=== PATIENT | male | born 1960 | race Caucasian/White ===

== ENCOUNTER 2025-04-14 14:16 | Inpatient (IN) | payer MEDICARE, OTHER ==
[~2025-04-14] VITALS: Ht 177.8 cm; Wt 86.6 kg
[2025-04-14 14:50] VITALS: O2SAT 96
[2025-04-14 14:51] LABS: BASOPHILS # (AUTO) 0.1 K/uL (0.0-0.2); BASOPHILS % (AUTO) 1.1 % (0.0-2.0); EOSINOPHILS # (AUTO) 0.2 K/uL (0.0-0.7); EOSINOPHILS % (AUTO) 3.9 % (0.0-6.0); HEMATOCRIT 44 % (39-51); HEMOGLOBIN 14.9 g/dL (13.5-17.5); LYMPHOCYTES # (AUTO) 1.9 K/uL (0.8-4.8); LYMPHOCYTES % (AUTO) 30.6 % (20.0-44.0); MEAN CORPUSCULAR HEMOGLOBIN 32 PG (26.0-33.0); MEAN CORPUSCULAR HGB CONC 34 g/dl (31.0-36.0); MEAN CORPUSCULAR VOLUME 93 fL (80-96); MONOCYTES # (AUTO) 0.4 K/uL (0.1-1.30); MONOCYTES % (AUTO) 7.4 % (2.0-12.0); NEUTROPHILS # (AUTO) 3.5 K/uL (1.8-8.9); PLATELET COUNT (AUTO) 236 K/uL (150-450); RED BLOOD CELL COUNT(AUTO) 4.69 MIL/uL (4.5-6.0); RED CELL DISTRIBUTION WIDTH 13.7 % (11.5-15.0); WHITE BLOOD COUNT (AUTO) 6.1 K/uL (4.3-11.0)
[2025-04-14 14:58] LABS: CARBON DIOXIDE 30 mmol/L (21-32); CHLORIDE 104 mmol/L (98-107); CREATININE 0.8 mg/dL (0.6-1.3); GLUCOSE 63 mg/dL (74-106); POTASSIUM 4.1 mmol/L (3.5-5.1); SODIUM SERUM 140 mmol/L (136-145); UREA NITROGEN, BLOOD 14 mg/dL (7-18)
[2025-04-14 15:04] LABS: APPEARANCE,URINE CLEAR (CLEAR); BILIRUBIN,URINE Negative (NEGATIVE); BLOOD, URINE Negative Ery/uL (NEGATIVE); COLOR,URINE YELLOW (YELLOW); KETONES,URINE Negative (NEGATIVE); LEUKOCYTE ESTERASE ,URINE Negative (NEGATIVE); PH,URINE 5.5 (5.0-8.0); PROTEIN,URINE Negative (NEGATIVE); UGLUCOSE Negative (NEGATIVE); UROBILINOGEN,URINE 0.2 EU/dL (0.2)
[2025-04-14 15:04] LABS: ACETAMINOPHEN <10 ug/ml (10-30); ALANINE AMINOTRANSFERASE 16 U/L (12-78); ALBUMIN 3.6 g/dL (3.4-5.0); ALCOHOL, BLOOD < 3 mg/dL (0-10); ALKALINE PHOSPHATASE 65 U/L (46-116); ASPARTATE AMINOTRANSFERASE 12 U/L (15-37); BILIRUBIN,DIRECT 0.1 mg/dL (0.0-0.2); BILIRUBIN,TOTAL 0.3 mg/dL (0.2-1.0); SALICYLATE 1.2 mg/dL (2.8-20.0); TOTAL PROTEIN, SERUM 7.5 g/dL (6.4-8.2)
[2025-04-14 15:05] LABS: NITRITE, URINE NEGATIVE (NEGATIVE)
[2025-04-14 15:12] LABS: AMPHETAMINE, URINE NEGATIVE (NEGATIVE); BARBITURATE, URINE NEGATIVE (NEGATIVE); BENZODIAZEPINE, URINE NEGATIVE (NEGATIVE); CANNABINOID, URINE NEGATIVE (NEGATIVE); COCCAINE, URINE NEGATIVE (NEGATIVE); OPIATE, URINE NEGATIVE (NEGATIVE); PHENCYCLIDINE SCREEN,URINE NEGATIVE (NEGATIVE)
[2025-04-14] MEDS ORDERED: PALI156D IM (15:18)
[2025-04-14] MEDS ORDERED: LEVE500T9 PO (15:18)
[2025-04-14] MEDS ORDERED: SERT50TA PO (15:18)
[2025-04-14] MEDS ORDERED: VALP250S4 PO (15:18)
[2025-04-14] MEDS ORDERED: OLAN10TA6 PO (15:18)
[2025-04-14] MEDS ORDERED: CARV6.25 PO (15:18)
[2025-04-14] MEDS ORDERED: MAGNESIUM HYDROXIDE 30 ML UDC PO PRN (19:30)
[2025-04-14] MEDS ORDERED: LORAZEPAM 1 MG TABLET PO PRN (19:30)
[2025-04-14] MEDS ORDERED: TEMAZEPAM 7.5 MG CAPSULE PO PRN ×2 (19:30)
[2025-04-14] MEDS ORDERED: MAG HYDROX/AL HYDROX/SIMETH 30 ML UDC PO PRN (19:30)
[2025-04-14 19:54] VITALS: BP 117/78; TEMP 97.5; O2SAT 98
[2025-04-14] MEDS: BLOOD SUGAR DIAGNOSTIC 1 EACH STRIP IN ONE (20:01)
[2025-04-15 07:53] LABS: ALBUMIN 3.6 g/dL (3.4-5.0); BILIRUBIN,TOTAL 0.4 mg/dL (0.2-1.0); CALCIUM, SERUM 9.2 mg/dL (8.5-10.1); CREATININE 0.8 mg/dL (0.6-1.3); POTASSIUM 4.3 mmol/L (3.5-5.1); TOTAL PROTEIN, SERUM 7.3 g/dL (6.4-8.2)
[2025-04-15 07:55] LABS: CHOLESTEROL 228 mg/dL (<200); HDL CHOLESTEROL 54 mg/dL (40-60); LDL 144 mg/dL (0-99); TRIGLYCERIDES 106 mg/dL (30-150)
[2025-04-15 08:00] VITALS: BP 118/82; TEMP 98.9; O2SAT 100
[2025-04-15] MEDS: CARVEDILOL 6.25 MG TABLET PO SCH (08:23)
[2025-04-15] MEDS: LEVETIRACETAM (250 MG) 250 MG TABLET PO SCH (08:23)
[2025-04-15] MEDS: VALPROIC ACID 250 MG/5 ML UDC PO SCH (08:23)
[2025-04-15 14:07] LABS: CREATININE 0.9 mg/dL (0.6-1.3)
[2025-04-15 16:00] VITALS: BP 118/75; TEMP 98.7; O2SAT 98
[2025-04-15 20:00] VITALS: BP 116/74; TEMP 98.5; O2SAT 97
[2025-04-15] MEDS: OLANZAPINE ZYDIS 5 MG TAB.RAPDIS SL SCH (21:48)
[2025-04-15] MEDS: ATORVASTATIN 40 MG TABLET PO SCH (21:49)
[2025-04-16] MEDS ORDERED: DIVALPROEX SODIUM 500 MG TABLET.DR PO SCH (09:00)
[2025-04-16 09:10] VITALS: BP 107/78; TEMP 98; O2SAT 97
[2025-04-16] MEDS: SERTRALINE HCL 25 MG TABLET PO SCH (09:22)
[2025-04-17 08:00] VITALS: BP 110/83; TEMP 98.1; O2SAT 98
[2025-04-17 16:00] VITALS: BP 119/74; TEMP 97.9; O2SAT 97
[2025-04-17 20:44] VITALS: BP 103/79; TEMP 97.9; O2SAT 97
[2025-04-17] MEDS: DIVALPROEX SODIUM 125 MG CAP.SPRINK PO SCH (21:00)
[2025-04-18 08:00] VITALS: BP 118/78; TEMP 97.7; O2SAT 99
[2025-04-18 16:00] VITALS: BP 113/71; TEMP 98.2; O2SAT 99
[2025-04-18 21:38] VITALS: BP 120/72; TEMP 98.2; O2SAT 98
[2025-04-19 15:45] VITALS: BP 102/70; TEMP 98.7; O2SAT 99
[2025-04-19 20:23] VITALS: BP 104/93; TEMP 98.7; O2SAT 100
[2025-04-20 15:57] VITALS: BP 129/87; TEMP 97.7; O2SAT 97
[2025-04-20 19:49] VITALS: BP 105/61; TEMP 97.9; O2SAT 97
[2025-04-21] MEDS: LORAZEPAM 0.5 MG TABLET PO PRN (03:53)
[2025-04-21 08:00] VITALS: BP 128/81; TEMP 97.8; O2SAT 100
[2025-04-21 15:43] VITALS: BP 115/81; TEMP 98.1; O2SAT 98
[2025-04-21 20:56] VITALS: BP 106/67; TEMP 98; O2SAT 97
[2025-04-22 08:00] VITALS: BP 136/90; TEMP 98; O2SAT 95
[2025-04-22 15:00] VITALS: BP 103/77; TEMP 98.1; O2SAT 100
[2025-04-22] MEDS: DIVALPROEX SODIUM 125 MG CAP.SPRINK PO SCH (20:08)
[2025-04-22 21:00] VITALS: BP 115/74; TEMP 98; O2SAT 98
[2025-04-24 16:00] VITALS: BP 118/77; TEMP 97.9; O2SAT 96
[2025-04-24 20:00] VITALS: BP 117/77; TEMP 98.1; O2SAT 97
[2025-04-25 08:00] VITALS: BP 102/72; TEMP 97.9; O2SAT 97
[2025-04-25] MEDS: diphenhydrAMINE HCL 50 MG/ML VIAL IM ONE (12:34)
[2025-04-25] MEDS: HALOPERIDOL LACTATE INJ 5 MG/ML VIAL IM ONE (12:34)
[2025-04-25] MEDS: LORAZEPAM INJ 2 MG/ML VIAL IM ONE (12:34)
[2025-04-25 16:00] VITALS: BP 119/78; TEMP 98.9; O2SAT 95
[2025-04-25 20:32] VITALS: BP 117/58; TEMP 97.9; O2SAT 98
[2025-04-26] MEDS: GUAIFENESIN 300 MG/15 ML UDC PO PRN (01:04)
[2025-04-26] MEDS: ACETAMINOPHEN 325 MG TABLET PO PRN (02:10)
[2025-04-26 08:22] VITALS: BP 119/78; TEMP 98; O2SAT 98
[2025-04-26 16:53] VITALS: BP 106/72; TEMP 98.7; O2SAT 97
[2025-04-26 20:47] VITALS: BP 103/72; TEMP 98.4; O2SAT 98
[2025-04-27 08:00] VITALS: BP 109/98; TEMP 98.7; O2SAT 98
[2025-04-27 16:00] VITALS: BP 104/73; TEMP 98.1; O2SAT 97
[2025-04-27 19:33] VITALS: BP 109/86; TEMP 98.4; O2SAT 98
[2025-04-28 08:00] VITALS: BP 117/76; TEMP 97.8; O2SAT 99
[2025-04-28 16:00] VITALS: BP 100/71; TEMP 98; O2SAT 98
[2025-04-28 20:00] VITALS: BP 103/72; TEMP 98; O2SAT 97
[2025-04-29 08:00] VITALS: BP 135/80; TEMP 97.6; O2SAT 98
[2025-04-29 08:01] VITALS: BP 135/80
== END 2025-04-29 13:20 | DRG 885 ==
LOC: ER 14:23 → GPS 17:12
PROVIDERS: ADMIT Psychiatry & Neurology Psychiatry; ATTEND Nurse Practitioner Family
DX: F25.0 Schizoaffective disorder, bipolar type (principal); R45.851 Suicidal ideations; E78.5 Hyperlipidemia, unspecified; R13.10 Dysphagia, unspecified; G40.909 Epilepsy, unspecified, not intractable, without status epilepticus; Z79.899 Other long term (current) drug therapy; Z20.822 Contact with and (suspected) exposure to COVID-19; I10 Essential (primary) hypertension
CPT/HCPCS: 36415; 80048-TC; 80053-TC; 80061-TC; 80076-TC; 80164-TC; 82565-TC; 82962-TC; 85025-TC; 87081-TC; G0480; J1200; J1630; J2060